=== PATIENT | female | born 1945 | race Caucasian/White ===

== ENCOUNTER → 2016-12-19 | Outpatient (CLI) | payer MEDICARE, OTHER ==
[~2016-12-19] MED LIST: ALEVE220 MG PO; CENTRUM COMPLE1 EACH PO; CIPRO500 MG PO; CITRACAL+D(315M1 TAB PO; CLEOCIN150 MG PO; COLACE100 MG PO; DELTASONE1 MG PO; DELTASONE5 MG PO; DOXYCYCLINE100 MG PO; ESTRACE0.5 MG PO; FLEXERIL10 MG PO; FOLIC ACID1 MG PO; MEDROL4 MG PO; METHOTREXATE (2.5 MG PO; ONDANSETRON ODT4 MG SL; OXYCONTIN10 MG PO; PRILOSEC20 MG PO; PROLIA60 MG/ML IM; TYLENOL EXTRA500 MG PO; ULTRAM50 MG PO; VALIUM5 MG PO; ZOCOR40 MG PO
== END | disposition disaster alternative care site (69) ==
LOC: GBCOE 10:19
DX: Z12.31 Encounter for screening mammogram for malignant neoplasm of breast (principal); Z91.89 Other specified personal risk factors, not elsewhere classified
CPT/HCPCS: G0202